=== PATIENT | male | born 1950 | race Caucasian/White ===

== ENCOUNTER 2022-02-18 18:47 | Inpatient (IN) | payer OTHER ==
[~2022-02-18] VITALS: Ht 172.7 cm; Wt 79.8 kg
[2022-02-18 20:31] LABS: BASOPHILS ABSOLUTE AUTO 0.07 K/mm3 (0.00-0.23); BASOPHILS PERCENT AUTO 1 % (0-2); EOSINOPHILS ABSOLUTE AUTO 0.24 K/mm3 (0.00-0.68); EOSINOPHILS PERCENT AUTO 2 % (0-6); Hematocrit 46.3 % (37.0-53.0); Hemoglobin 15.3 g/dL (13.5-17.5); IMMATURE GRAN ABSOLUTE AUTO 0.12 K/mm3 (0.00-0.10); IMMATURE GRAN PERCENT AUTO 1 % (0-1); LYMPHOCYTES ABSOLUTE AUTO 2.49 K/mm3 (0.84-5.20); LYMPHOCYTES PERCENT AUTO 17 % (21-46); MONOCYTES ABSOLUTE AUTO 0.62 K/mm3 (0.16-1.47); MONOCYTES PERCENT AUTO 4 % (4-13); Mean Corpuscular HGB 29.4 pg (26.0-34.0); Mean Corpuscular Volume 89 fL (80-100); Mean Platelet Volume 10.2 fL (9.1-12.4); NEUTROPHILS ABSOLUTE AUTO 11.16 K/mm3 (1.96-9.15); NEUTROPHILS PERCENT AUTO 76 % (41-73); Platelet Count 298 K/mm3 (150-400); RDW Coefficient Variation 13.7 % (11.7-14.2); RDW Standard Deviation 44.8 fL (35.1-46.3); Red Blood Cell Count 5.21 M/mm3 (4.30-5.90)
[2022-02-18 20:53] LABS: Bun/Creatinine Ratio 19.5 (12.0-20.0); Calcium, Blood 9.1 mg/dL (8.5-10.1); Creatinine, Blood 0.98 mg/dL (0.60-1.20); Potassium, Blood 3.5 mmol/L (3.5-5.5)
[2022-02-18 21:41] LABS: Influenza A, PCR NEGATIVE (NEGATIVE); Influenza B, PCR NEGATIVE (NEGATIVE); Resp Syncytial Virus, PCR NEGATIVE (NEGATIVE); SARS-Cov-2 (COVID-19) PCR, MMC NEGATIVE (NEGATIVE)
--- NOTE | 2022-02-19 04:53 | NUR ---
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 PT ADMITTED FOR L HIP FX AFTER FALLING 5 FEET FROM [facility] AT HIS HOME. 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 PAIN HAS BEEN WELL MANAGED WITH PO PAIN MEDICATIONS THUS FAR. PT TO HAVE SURGERY LATER TODAY WITH DR ROBERTO WHO WAS CONSULTED BY ED PHYSICIAN. VSS, WILL CONTINUE TO MONITOR.
[2022-02-19 06:06] LABS: BASOPHILS ABSOLUTE AUTO 0.03 K/mm3 (0.00-0.23); BASOPHILS PERCENT AUTO 0 % (0-2); EOSINOPHILS ABSOLUTE AUTO 0.16 K/mm3 (0.00-0.68); EOSINOPHILS PERCENT AUTO 2 % (0-6); Hematocrit 40.5 % (37.0-53.0); IMMATURE GRAN ABSOLUTE AUTO 0.02 K/mm3 (0.00-0.10); IMMATURE GRAN PERCENT AUTO 0 % (0-1); LYMPHOCYTES ABSOLUTE AUTO 1.73 K/mm3 (0.84-5.20); LYMPHOCYTES PERCENT AUTO 21 % (21-46); MONOCYTES ABSOLUTE AUTO 0.71 K/mm3 (0.16-1.47); MONOCYTES PERCENT AUTO 9 % (4-13); Mean Corpuscular HGB 28.9 pg (26.0-34.0); Mean Corpuscular HGB Conc 32.1 g/dL (31.5-36.5); Mean Corpuscular Volume 90 fL (80-100); Mean Platelet Volume 10.2 fL (9.1-12.4); NEUTROPHILS ABSOLUTE AUTO 5.75 K/mm3 (1.96-9.15); NEUTROPHILS PERCENT AUTO 68 % (41-73); Platelet Count 210 K/mm3 (150-400); RDW Coefficient Variation 13.8 % (11.7-14.2); RDW Standard Deviation 44.9 fL (35.1-46.3)
[2022-02-19 06:36] LABS: Albumin, Blood 3.2 g/dL (3.4-5.0); Albumin/Globulin Ratio 1.1 (0.8-1.8); Bilirubin, Total 0.8 mg/dL (0.1-1.0); Bun/Creatinine Ratio 26.1 (12.0-20.0); Calcium, Blood 8.2 mg/dL (8.5-10.1); Creatinine, Blood 0.8 mg/dL (0.60-1.20); Globulin, Blood 2.9 g/dL (2.2-4.0); Potassium, Blood 3.9 mmol/L (3.5-5.5); Total Protein, Blood 6.1 g/dL (6.4-8.2)
--- NOTE | 2022-02-19 08:06 | NUR ---
PT TO DAY SURGERY VIA HOSPITAL BED
--- NOTE | 2022-02-19 08:07 | NUR ---
PT INTO DS. RECEIVED REPORT FROM SONAM PAYTON. NOZIN, PERIDEX MOUTH RINSE AND CHOLAHEXADINE WIPES DONE IN ROOM.
--- NOTE | 2022-02-19 08:41 | NUR ---
History, Chart, Medications and Allergies reviewed before start of procedure.Pre-Op teaching done. Pt verbalizes understanding. Patient confirms NPO status and agrees with scheduled surgery.
--- NOTE | 2022-02-19 11:40 | NUR ---
POST OP PT ARRIVES IN HOSPITAL BED TO ROOM. ALERT, ORIENTED. PPP. WIGGLES TOES. DENIES NUMB/TING. L HIP w/ 2 SURGICAL SITES & 3 AQUACEL's OVER. NO DRNG/SHADOWING NOTED. L THIGH SOFT, BUT SWOLLEN. SIPS OF WATER GIVEN. LUNGS CLEAR BUT DIM IN BASES. HRR. VSS.
--- NOTE | 2022-02-19 14:57 | NUR ---
assumed care of pt following recving report from previous RN Che. Pt sitting up in chair using telephone, denies n/v, l hip dressings x 3 C/D/I. pt a/o, pleasant/cooperative, tolerating clear liquids.
--- NOTE | 2022-02-19 18:21 | NUR ---
SHIFT SUMMARY (SECOND HALF): PT REMAINS A/O X 4, PLEASANT/COOPERATIVE, NO ACUTE CHANGES, VSS. PT HAS WORKED WITH PHYSICAL THERAPY THIS SHIFT AND STATES HE HAS BEEN DOING HIS EXERCISES, HAS AMBULATED TO THE BATHROOM, HAS BEEN UP IN THE CHAIR. PT TOLERATING CARDIAC DIET, DENIES N/V. PAIN CONTROLLED WELL, 2-10/16, PER OCT. L HIP AQUACEL DRESSINGS X 3 C/D/, NO SHADOWING.
--- NOTE | 2022-02-20 05:13 | NUR ---
ASSUMED CARE OF PT AT 1900. NO ACUTE CHANGES THIS SHIFT. PT IS A&OX4, SBA W/ FWW TO BR AND IS ABLE TO MAKE NEEDS KNOWN. POST OP DAY 1 FOR L HIP PINNING, DRESSING IS [facility] AND [facility] INTACT. PAIN CONTROLLED WITH PRN TYLENOL AND IBUPROFIN. TOLERATING DIET. PT ABLE TO AMBULATE AND HAS VOIDED THIS SHIFT. SLEEPS BETWEEN CARES, IS ABLE TO REST 7+ HOURS THIS SHIFT. WILL CONTINUE TO MONITOR AND GIVE REPORT TO ONCOMING RN.
[2022-02-20] MEDS ORDERED: HYDACE10B PO (12:02)
[2022-02-20] MEDS ORDERED: XARELTO20 MG PO (12:02)
--- NOTE | 2022-02-20 12:21 | NUR ---
DISCHARGE NOTE: PATIENT WAS EDUCATED ON DISCHARGE INSTRUCTIONS. HE VERBALIZED UNDERSTANDING OF INSTRUCTIONS. 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 PAIN IS MANAGED WITH PO PAIN MEDICATIONS. IV WAS TAKEN OUT AND WNL. PATIENT IS A SBA WITH FWW AND GAIT BELT. LEFT HIP HAS AN AQUACEL THAT IS C/D/I. DENIES NUMBNESS AND TINGLING. HE IS TOLERATING PO INTAKE AND IS VOIDING. PATIENT IS DRESSED AND HAS PERSONAL ITEMS IN THE ROOM GATHERED. HE IS WAITING FOR A FRIEND TO COME PICK HIM UP TO TAKE HIM HOME. HE WILL THEN BE WHEELCHAIRED DOWN TO THE FRIENDS CAR TO BE TAKEN HOME.
--- NOTE | 2022-02-20 15:10 | NUR ---
CAME UP TO THE ROOM AND INSISTED ON WHEELCHAIRING OUT THE PATIENT TO HER CAR. PATIENT HAS ITEMS IN THE ROOM GATHERED AND WILL BE TAKEN HOME.
== END 2022-02-20 15:01 | disposition home or self-care (01) | DRG 482 ==
LOC: ER 18:47 → SURS 21:18
PROVIDERS: Emergency Medicine; Orthopaedic Surgery; Student in an Organized Health Care Education/Training Program; ADMIT Family Medicine
PROC: 0QS736Z Reposition Left Upper Femur with Intramedullary Internal Fixation Device, Percutaneous Approach (ICD-10-PCS; principal; 2022-02-19 09:45)
DX: S72.142A Displaced intertrochanteric fracture of left femur, initial encounter for closed fracture (principal); Z20.822 Contact with and (suspected) exposure to COVID-19; D72.829 Elevated white blood cell count, unspecified; Z96.662 Presence of left artificial ankle joint; Z98.1 Arthrodesis status; Z98.890 Other specified postprocedural states; Z87.891 Personal history of nicotine dependence; Z88.0 Allergy status to penicillin; W12.XXXA Fall on and from scaffolding, initial encounter
CPT/HCPCS: 0241U; 36415; 73502; 80048; 80053; 85025; 93005; 93010; 96374; 96375; 97110; 97162; 97530; 99285-25; A9270; C1713; J1100; J1885; J2250; J2270; J2370; J2405; J2704; J3010; J7030; J7120